=== PATIENT | female | born 1985 | race African-American/Black ===

== ENCOUNTER 2016-11-18 23:05 | Emergency (ER) | payer MEDICAID ==
[~2016-11-18] VITALS: Ht 157.5 cm; Wt 58.6 kg
[2016-11-18 23:12] VITALS: BP 122/62
--- NOTE | 2016-11-19 02:04 | NUR ---
TO ER BED 5
[2016-11-19] MEDS ORDERED: KETOROLAC 60 MG/2 ML VIAL IM ONE (02:10)
--- NOTE | 2016-11-19 02:15 | NUR ---
PATIENT PRESENTS TO ED WITH ABD PAIN . PT DENIES N/V/D; SKIN IS PINK/WARM/DRY; AAOX4 WITH EVEN AND STEADY GAIT; LUNGS CLEAR BL; HR EVEN AND REGULAR; PT DENIES ANY FEVER, CP, SOB, OR COUGH AT THIS TIME; PATIENT STATES PAIN OF 7/10 AT THIS TIME; VSS; PATIENT POSITIONED FOR COMFORT; HOB ELEVATED; BEDRAILS UP X2; BED DOWN. ER MD MADE AWARE OF PT STATUS.
--- NOTE | 2016-11-19 02:18 | NUR ---
PT TAKEN OFF UNIT TO X-RAY VIA WHEELCHAIR
[2016-11-19 03:36] VITALS: BP 125/65
== END 2016-11-19 03:36 | disposition home or self-care (01) ==
LOC: MED 23:05
DX: R10.9 Unspecified abdominal pain (principal); R03.0 Elevated blood-pressure reading, without diagnosis of hypertension
CPT/HCPCS: 74022; 81002; 81025; 96372; 99284; J1885